=== PATIENT | female | born 1950 | race Caucasian/White ===

== ENCOUNTER → 2019-05-18 | Outpatient (CLI) | payer MEDICARE ==
[~2019-05-18] MED LIST: CRUTCH USE; IBUP800 PO; OXYACE5T PO
== END | disposition home or self-care (01) ==
LOC: LAB 14:34 → LAB SHORT 14:34
DX: L08.0 Pyoderma (principal)
CPT/HCPCS: 87070; 87077; 87186; 87205

== ENCOUNTER 2022-11-12 05:39 | Day surgery (SDC) | payer MEDICARE ==
[2022-11-12] VITALS (18 sets, daily range): BP systolic 104–150; BP diastolic 62–86
[~2022-11-12] VITALS: Ht 157.5 cm; Wt 78.8 kg
[~2022-11-12 05:39] MED LIST changes: +ASPI81CH PO; +CALCIUM CIT 311 EAC7 PO; +Calcium Carbon500 MG PO; +DICL75ER PO; +ERGO400 PO; +MULVITA PO; +PSEUDOEPHEDRINE30 M1 PO; +Vitamin B Comple1 EA PO
[2022-11-12] MEDS ORDERED: CALCIUM CIT 311 EAC7 PO (06:44)
--- NOTE | 2022-11-12 07:28 | NUR ---
PT INTO DEPT VIA W/C. PT IS VERY PAINFUL AND SLOW TO MOVE. USES CANE AND CAN TRANSFER W/ ASSIST. History, Chart, Medications and Allergies reviewed before start of procedure.Patient confirms NPO status and agrees with scheduled surgery. Pre-Op teaching done. Pt verbalizes understanding.
--- NOTE | 2022-11-12 08:18 | NUR ---
11/12/22 0818 Ermias Romero I PATIENT RECEIVED 1 GRAM VANCOMYCIN IN THE PREOPERATIVE SETTING.
--- NOTE | 2022-11-12 13:46 | NUR ---
"Spiritual Care Attempted | Pt. request Pt. 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 Notified Pts. nurse."
--- NOTE | 2022-11-12 17:00 | NUR ---
Pt. is awake and sitting in a recliner when she welcomes my visit. Pt. is pleasant, but a displays evidence of being a little guarded at first. Facilitate a life review, and begin to establish rapport. Pt. verrbalizes some difficult family dynamics. Listen with empathy and a calming presence. Prayed with Pt. Pt. displayed evidence of trust and engagement, and verbalized gratitude for the spiritual care visit. Pt. invited this avionic technician to return.
--- NOTE | 2022-11-12 17:14 | NUR ---
SHIFT SUMMARY PT A&OX4, VSS/RA, YUMI PO, VOIDING, AMB 1 PP MIN ASSIST W/FWW & GB. PHYSICAL AND OCCUPATIONAL THERAPY EVAL'D. IVF AND ABX PER EMAR. PAIN MANAGED WITH TYLENOL AND TORADOL. S/P L TYRONE, SURG DRESSINGS DRY/INTACT. WILL REPORT TO ONCOMING NOC RN.
[2022-11-13 03:47] VITALS: BP 125/68
--- NOTE | 2022-11-13 04:38 | NUR ---
SHIFT SUMMARY PATIENT IS POD1 L TYRONE. WOKRED WITH PT AND OT ON DAY SHIFT, AMBULATED IN ROOM AND TO HALLWAY ON THIS SHIFT. USES FWW, GB, AND 1 SBA. POSTERIOR HIP PRECAUTIONS IN PLACE, GAUZE W/ FOAM DRESSING TO HIP IS C/D/I. VOIDING IN BATHROOM, TOLERATING PO INTAKE AND DENIES N/V. PLAN FOR THERAPY IN AM AND DISCHARGE HOME. VSS CALL LIGHT IN REACH. WILL CONT. TO MONITOR AND TREAT PER ORDERS.
[2022-11-13 05:57] LABS: BASOPHILS ABSOLUTE AUTO 0.03 K/mm3 (0.00-0.23); BASOPHILS PERCENT AUTO 0 % (0-2); EOSINOPHILS ABSOLUTE AUTO 0.08 K/mm3 (0.00-0.68); EOSINOPHILS PERCENT AUTO 1 % (0-6); Hematocrit 30.2 % (33.0-51.0); Hemoglobin 10.2 g/dL (11.5-16.0); IMMATURE GRAN ABSOLUTE AUTO 0.02 K/mm3 (0.00-0.10); IMMATURE GRAN PERCENT AUTO 0 % (0-1); LYMPHOCYTES ABSOLUTE AUTO 1.35 K/mm3 (0.84-5.20); LYMPHOCYTES PERCENT AUTO 19 % (21-46); MONOCYTES ABSOLUTE AUTO 0.68 K/mm3 (0.16-1.47); MONOCYTES PERCENT AUTO 9 % (4-13); Mean Corpuscular HGB 30.5 pg (26.0-34.0); Mean Corpuscular HGB Conc 33.8 g/dL (31.5-36.5); Mean Corpuscular Volume 90 fL (80-100); Mean Platelet Volume 9.3 fL (9.1-12.4); NEUTROPHILS ABSOLUTE AUTO 5.07 K/mm3 (1.96-9.15); NEUTROPHILS PERCENT AUTO 70 % (41-73); Platelet Count 215 K/mm3 (150-400); RDW Coefficient Variation 12.4 % (11.7-14.2); RDW Standard Deviation 40.7 fL (35.1-46.3); Red Blood Cell Count 3.34 M/mm3 (3.80-5.20); White Blood Cell Count 7.23 K/mm3 (4.00-11.30)
[2022-11-13 06:20] LABS: Bun/Creatinine Ratio 25.4 (12.0-20.0); Calcium, Blood 8.4 mg/dL (8.5-10.1); Creatinine, Blood 0.51 mg/dL (0.40-1.00); Magnesium, Blood 2.1 mg/dL (1.6-2.4); Potassium, Blood 3.9 mmol/L (3.5-5.5)
[2022-11-13 07:25] VITALS: BP 112/73
[2022-11-13] MEDS ORDERED: Vitamin B Comple1 EA PO (10:12)
[2022-11-13] MEDS ORDERED: ASPI81CH PO (10:13)
[2022-11-13] MEDS ORDERED: OXYC5 PO (10:16)
[2022-11-13] MEDS ORDERED: PROM25 PO (10:17)
[2022-11-13] MEDS ORDERED: SULTRIDS PO (10:19)
--- NOTE | 2022-11-13 12:27 | NUR ---
DISCHARGE SUMMARY PT A&OX4, VSS/RA, YUMI PO, VOIDING, AMB SBA FWW/GB, PAIN MANAGED, IV DC'D. DC INS PROVIDED. PT REP UNDERSTANDING THOSE INSTRUCTIONS INCLUDING DRESSING CHANGES, FU WITH SURGEON, PT OUTPT, POSTERIOR PRECAUTIONS. LEFT FLOOR VIA WC WITH PRIVATE DUTY LPN, TO GO HOME WITH , WITH ALL PERSONAL POSSESSIONS INCLUDING EXTRA AQUACEL DRESSINGS, PT REP SCRIPTS FILLED AT HOME.
== END 2022-11-13 12:36 | disposition home or self-care (01) ==
LOC: ORSCMMR 05:39 → ORD 07:30 → SURS 09:55 → ORSCMMR 11-13 12:36
PROVIDERS: Orthopaedic Surgery
PROC: 0SR90JA Replacement of Right Hip Joint with Synthetic Substitute, Uncemented, Open Approach (ICD-10-PCS; principal; 2022-11-12 07:30)
DX: M16.12 Unilateral primary osteoarthritis, left hip (principal)
CPT/HCPCS: 36415; 72170; 80048; 83735; 85025; 97110; 97116; 97162; 97166; 97530; 97535; A9270; C1713; C1776; J0171; J0690; J0735; J1885; J2250; J2370; J2405; J2704; J2765; J2795; J3010; J3370; J7120

== ENCOUNTER → 2023-03-26 | Outpatient (CLI) | payer MEDICARE ==
[~2023-03-26] MED LIST changes: +OXYC5 PO; +PROM25 PO; +SULTRIDS PO
== END ==
LOC: LAB SHORT 16:00 → LAB 16:00
DX: D48.5 Neoplasm of uncertain behavior of skin (principal)
CPT/HCPCS: 88305

== ENCOUNTER → 2023-04-30 | Outpatient (CLI) | payer MEDICARE ==
[2023-04-30 16:33] LABS: BASOPHILS ABSOLUTE AUTO 0.04 K/mm3 (0.00-0.23); BASOPHILS PERCENT AUTO 1 % (0-2); EOSINOPHILS ABSOLUTE AUTO 0.13 K/mm3 (0.00-0.68); EOSINOPHILS PERCENT AUTO 3 % (0-6); Hematocrit 38.2 % (33.0-51.0); Hemoglobin 12.6 g/dL (11.5-16.0); IMMATURE GRAN PERCENT AUTO 0 % (0-1); LYMPHOCYTES ABSOLUTE AUTO 1.67 K/mm3 (0.84-5.20); LYMPHOCYTES PERCENT AUTO 34 % (21-46); MONOCYTES ABSOLUTE AUTO 0.36 K/mm3 (0.16-1.47); MONOCYTES PERCENT AUTO 7 % (4-13); Mean Corpuscular HGB 30.1 pg (26.0-34.0); Mean Corpuscular Volume 91 fL (80-100); Mean Platelet Volume 9.3 fL (9.1-12.4); NEUTROPHILS ABSOLUTE AUTO 2.66 K/mm3 (1.96-9.15); NEUTROPHILS PERCENT AUTO 55 % (41-73); Platelet Count 254 K/mm3 (150-400); RDW Coefficient Variation 12.8 % (11.7-14.2); RDW Standard Deviation 42.5 fL (35.1-46.3); Red Blood Cell Count 4.19 M/mm3 (3.80-5.20); White Blood Cell Count 4.86 K/mm3 (4.00-11.30)
== END | disposition home or self-care (01) ==
LOC: LAB 14:24 → LAB SHORT 14:24
PROVIDERS: Family Medicine
DX: I10 Essential (primary) hypertension (principal)
CPT/HCPCS: 85025